=== PATIENT | female | born 2000 | race African-American/Black ===

== ENCOUNTER 2020-06-16 16:42 | Emergency (ER) | payer MEDICAID ==
[~2020-06-16] VITALS: Ht 162.6 cm; Wt 56.7 kg
--- NOTE | 2020-06-16 16:56 | NUR ---
ED Nurse Note: Pt walked into ED for nausea and vomiting for more than 2 weeks. Pt states her last menstrual period was 05/10. Pt thinks could possibly be . Pt is alert and orientedx4, ambulatory. She has been seen by [facility].
[2020-06-16 16:57] VITALS: BP 116/76
[2020-06-16] MEDS ORDERED: Metoclopramide 10mg/2ml Inj IVP ONE (17:00)
[2020-06-16 17:38] LABS: APPEARANCE,URINE SLIGHTLY CLOUDY; BILIRUBIN, URINE NEGATIVE (NEGATIVE); GLUCOSE, URINE (UA) NEGATIVE (NEGATIVE); KETONES,URINE 4+ (NEGATIVE); LEUKOCYTE ESTERASE ,URINE NEGATIVE (NEGATIVE); NITRITE,URINE NEGATIVE (NEGATIVE); PH,URINE 5 (4.5-8.0); PROTEIN,URINE 2+ (NEGATIVE); UROBILINOGEN,URINE NORMAL MG/DL (0.0-1.0)
[2020-06-16 17:41] LABS: EOSINOPHILS % (AUTO) 0.1 % (0.0-3.0); HEMATOCRIT 43.7 % (37.0-47.0); HEMOGLOBIN 14.9 G/DL (12.0-16.0); LYMPHOCYTES % (AUTO) 17.7 % (20.0-45.0); MEAN CORPUSCULAR VOLUME 89 FL (80-99); MONOCYTES % (AUTO) 6.9 % (1.0-10.0); NEUTROPHILS % (AUTO) 74.3 % (45.0-75.0); PLATELET COUNT 274 K/UL (150-450); RED BLOOD COUNT 4.89 M/UL (4.20-5.40); RED CELL DISTRIBUTION WIDTH 11.2 % (11.6-14.8); WHITE BLOOD COUNT 11.3 K/UL (4.8-10.8)
[2020-06-16 17:54] LABS: ANION GAP 17 mmol/L (5-15); BLOOD UREA NITROGEN 8 mg/dL (7-18); CALCIUM 10.1 MG/DL (8.5-10.1); CARBON DIOXIDE 18 MMOL/L (21-32); CHLORIDE 101 MMOL/L (98-107); CREATININE 0.9 MG/DL (0.55-1.30); POTASSIUM 3.4 MMOL/L (3.5-5.1); SODIUM 136 MMOL/L (136-145)
[2020-06-16 18:00] LABS: COLOR,URINE YELLOW
[2020-06-16 18:05] LABS: ALANINE AMINOTRANSFERASE 14 U/L (12-78); ALBUMIN 4.8 G/DL (3.4-5.0); ALBUMIN/GLOBULIN RATIO 1.2 (1.0-2.7); ALKALINE PHOSPHATASE 40 U/L (46-116); ASPARTATE AMINO TRANSFERASE 16 U/L (15-37); BILIRUBIN,DIRECT 0.2 MG/DL (0.0-0.3); BILIRUBIN,TOTAL 1.2 MG/DL (0.2-1.0)
--- NOTE | 2020-06-16 18:22 | Emergency Room Report ---
History of Present Illness General Chief Complaint: Vomiting Source: Patient Present Illness HPI 19-year-old female presents today with a chief complaint of vomiting x2 weeks. Patient states that she took an at-home test and it was positive. Last menstrual period was April 29, 2020. Other associated symptoms are lower pelvic cramping, it is intermittent, and she states she currently does not have any lower pelvic pain right now. She denies any vaginal bleeding or discharge. [place] any urinary symptoms. Location: Lower pelvic pain. Severity: Mild Quality: Throbbing Timing: Intermittent currently not at this time Modifying Factors: None Associated signs and symptoms: Vomiting PMH: [Denies] PSH: [Denies] Smoking: [Denies] Ethanol: [Denies] Drug: Reports marijuana Allergies: Coded Allergies: No Known Allergies (Unverified , 06/16/20) COVID-19 Screening Contact w/high risk pt: No Experienced COVID-19 symptoms?: No COVID-19 Testing performed MANAGER IN TRAINING: No Patient History Last Menstrual Period: 04/29/2020 Now: No Nursing Documentation-PMH Past Medical History: No Stated History Review of Systems Narrative Review of systems: CONST: No fevers or chills, No night sweats EYES: No eye pain, vision change, eye discharge HEAD/EARS/NOSE/THROAT: No earache, sore throat, or nasal discharge. PULMONARY: No SOB, no cough, no wheezing CARDIAC: No chest pain, No palpitations, no leg swelling GI: No abdominal pain, + vomiting, no diarrhea , no melena or BRBPR : No flank pain, no dysuria, no hematuria, no frequency. MUSCULOSKELETAL: No back pain, no neck pain, no leg pain SKIN: No rash, no itching, no bruising NEUROLOGICAL: No headache, no dizziness, no paresthesia , no focal weakness. 14 point Review of Systems is otherwise negative except per HPI Physical Exam Vital Signs Date Time Temp Pulse Resp B/P (MAP) Pulse Ox O2 Delivery O2 Flow Rate FiO2 06/16/20 16:46 98.1 110 22 110/74 (86) 100 Room Air 06/16/20 16:57 98 Other Organ Systems Physical Exam: GENERAL: BMI 21.5 Awake, alert, nontoxic, in no acute distress EYES: EOMI, conjunctiva without pallor HEAD/EARS/NOSE/THROAT: NCAT, oral mucosa moist, external nose and ear normal in appearance, oropharynx clear, no swelling or exudates. NECK: supple, nontender, no spasm, no JVD, no cervical adenopathy RESPIRATORY: no stridor, effort normal, no retractions, no accessory muscle use, BS clear bilaterally, no wheezes, no rhonchi, no rales, no rub. CARDIOVASCULAR: RRR, normal S1 S2, no murmur, no peripheral edema ABDOMINAL /GI: soft, nondistended, nontender, BS normal, no masses, no guarding, no Mcburneys point tenderness, no rebound, no Murpheys sign : No CVA tenderness MUSCULOSKELETAL: All extremities are non-tender, no swelling, FROM, normal strength, normal sensation, cap refill <2 seconds in all extremities EXTREMITIES: no leg swelling, pulses: 2+ brisk and normal in all distal extremities SKIN: No rash, skin is warm and dry. No cyanosis, no pallor NEUROLOGICAL: awake, alert and appropriate, oriented x3, speech normal, motor and sensation grossly intact PSYCHIATRIC: Normal mood, normal affect Medical Decision Making PA Attestation Dr. Garcia Is my supervising Physician whom patient management has been discussed with. Diagnostic Impression: Primary Impression: Hyperemesis gravidarum Additional Impressions: Acute nausea with nonbilious vomiting Qualified Codes: Z3A.01 - Less than 8 weeks gestation of ER Course Pt. presents to the ED c/o vomiting for 2 weeks. Ddx considered but are not limited to , hyperemesis gravidarum, DKA, gastroenteritis, appendicitis Vital signs: Have stabilized and are WNL, pt. is afebrile H&PE are most consistent with hyperemesis gravidarum ORDERS: CBC, CMP, urinalysis, beta hCG quantitative, OB ultrasound ED INTERVENTIONS: IV fluids, Reglan, Keflex, and potassium DISCHARGE: Patient presents today with vomiting for 2 weeks. She states she has had a positive test at home and believes she may be , therefore work-up was ordered. CBC revealed mildly elevated leukocytosis at 11.3 however I suspect that is reactive due to the vomiting. CMP revealed no severely acute electrolyte abnormalities however potassium is at 3.4 and therefore patient was given 40 mEq of oral potassium while here in ER. She is noted to have a bicarb of 18 with ketonuria and therefore clinically she is acidotic however no evidence of severe acidosis at ths time, she appears well and in no acute distress, vital signs have normalized. She was given IV fluids as well as reglan while here in ER and states she is feeling much better. She is now able tolerate p.o. On abdominal exam there is no tenderness to palpation, do not suspect appendicitis at this time. OB ultrasound revealed evidence of intrauterine with blood flow to both ovaries, do not suspect ovarian torsion or ectopic at this time. urinalysis did reveal evidence of 3+ blood and red blood cells with bacteria, therefore we will treat patient for asymptomatic urinary tract infection. She was given 1 dose of Keflex while here in ER and sent home with a prescription. Patient was also sent home with a prescription for Diclegis for the vomiting. She is currently able to tolerate p.o. and in no acute distress. She was given resources to follow-up with OB. At this time pt. is stable for d/c to home. Will provide printed patient care instructions, and any necessary prescriptions. Care plan and follow up instructions have been discussed with the patient prior to discharge. Laboratory Tests Test 06/16/20 14:54 06/16/20 17:24 Urine Color Yellow Urine Appearance Slightly cloudy Urine pH 5 (4.5-8.0) Urine Specific Gurley 1.030 (1.005-1.035) Urine Protein 2+ (NEGATIVE) H Urine Glucose (UA) Negative (NEGATIVE) Urine Ketones 4+ (NEGATIVE) H Urine Blood 3+ (NEGATIVE) H Urine Nitrite Negative (NEGATIVE) Urine Bilirubin Negative (NEGATIVE) Urine Urobilinogen Normal MG/DL (0.0-1.0) Urine Leukocyte Esterase Negative (NEGATIVE) Urine RBC 15-20 /HPF (0 - 2) H Urine WBC 2-4 /HPF (0 - 2) Urine Squamous Epithelial Cells Many /LPF (NONE/OCC) H Urine Bacteria Few /HPF (NONE) White Blood Count 11.3 K/UL (4.8-10.8) H Red Blood Count 4.89 M/UL (4.20-5.40) Hemoglobin 14.9 G/DL (12.0-16.0) Hematocrit 43.7 % (37.0-47.0) Mean Corpuscular Volume 89 FL (80-99) Mean Corpuscular Hemoglobin 30.6 PG (27.0-31.0) Mean Corpuscular Hemoglobin Concent 34.2 G/DL (32.0-36.0) Red Cell Distribution Width 11.2 % (11.6-14.8) L Platelet Count 274 K/UL (150-450) Mean Platelet Volume 7.6 FL (6.5-10.1) Neutrophils (%) (Auto) 74.3 % (45.0-75.0) Lymphocytes (%) (Auto) 17.7 % (20.0-45.0) L Monocytes (%) (Auto) 6.9 % (1.0-10.0) Eosinophils (%) (Auto) 0.1 % (0.0-3.0) Basophils (%) (Auto) 1.0 % (0.0-2.0) Sodium Level 136 MMOL/L (136-145) Potassium Level 3.4 MMOL/L (3.5-5.1) L Chloride Level 101 MMOL/L (98-107) Carbon Dioxide Level 18 MMOL/L (21-32) L Anion Gap 17 mmol/L (5-15) H Blood Urea Nitrogen 8 mg/dL (7-18) Creatinine 0.9 MG/DL (0.55-1.30) Estimated Glomerular Filtration Rate > 60 mL/min (>60) Glucose Level 73 MG/DL (74-106) L Calcium Level 10.1 MG/DL (8.5-10.1) Total Bilirubin 1.2 MG/DL (0.2-1.0) H Direct Bilirubin 0.2 MG/DL (0.0-0.3) Aspartate Amino Transferase (AST) 16 U/L (15-37) Alanine Aminotransferase (ALT) 14 U/L (12-78) Alkaline Phosphatase 40 U/L (46-116) L Total Protein 8.9 G/DL (6.4-8.2) H Albumin 4.8 G/DL (3.4-5.0) Globulin 4.1 g/dL Albumin/Globulin Ratio 1.2 (1.0-2.7) Lipase 63 U/L (73-393) L Human Chorionic Gonadotropin, Quant 441320 mIU/mL (1-6) H CT/MRI/US Diagnostic Results CT/MRI/US Diagnostic Results : Imaging Test Ordered: OB ultrasound Impression "IMPRESSION: 1. Single viable intrauterine gestation corresponding to a gestational age of 7 weeks 4 days. 2. heart rate is 153 bpm. 3. Flow is demonstrated to both ovaries. 4. Probable left ovarian corpus luteum cyst. 5. Cervix measures 3 cm and is closed." ---Per official radiology report please see radiology report for specific details.--- Last Vital Signs Date Time Temp Pulse Resp B/P (MAP) Pulse Ox O2 Delivery O2 Flow Rate FiO2 06/16/20 16:57 99 20 Room Air 98 06/16/20 16:57 98.1 116/76 98 Status: improved Disposition: HOME, SELF-CARE Condition: Stable Scripts Cephalexin* (KEFLEX*) 500 Mg Capsule 500 MG ORAL EVERY 8 HOURS for 10 Days, #30 CAP Prov: Diane Green 06/16/20 Doxylamine/Pyridoxine Hcl (DICCHATO ARRIETA 10-10 MG TABLET) 1 Each Tablet. 1-2 TAB PO TID, #21 TAB Prov: Diane Green 06/16/20 Referrals: NOT CHOSEN IPA/,REFERRING (PCP) Patient Instructions: Hyperemesis Gravidarum Additional Instructions: Take medications as directed. Follow up with a Primary Care Provider in 1-2 days, even if your symptoms have resolved. Please see attached referrals to establish care with an OB. Stop smoking marijuana. Return sooner to ED if new symptoms occur, or current symptoms become worse. - Please note that this Emergency Department Report was dictated using [employer]credit review officer technology software, occasionally this can lead to erroneous entry secondary to interpretation by the dictation equipment. Denise Osorio PA-C Jun 16, 2020 18:22
--- NOTE | 2020-06-16 18:43 | Diagnostic Imaging Report ---
ADDENDUM - Added by Saravanan Zamora MD on 06/17/2020 7:31 PM (-08:00) This is a correction to the original report. This was only a transabdominal examination. EXAM: US First Trimester , Transabdominal and Transvaginal CLINICAL HISTORY: ABD PAIN TECHNIQUE: Real-time transabdominal and transvaginal obstetrical ultrasound of the maternal pelvis and a first trimester with image documentation. Transvaginal imaging was used for better evaluation of the fetus and adnexa. COMPARISON: No previous study. FINDINGS: Gestation: Single viable intrauterine gestation is noted. heart rate is 153 bpm. Yolk sac is unremarkable. Flow noted to both ovaries. Placenta/amniotic fluid: Cannot be adequately evaluated due to the early gestational age. Uterus/cervix: Cervix measures 3 cm and is closed. No myometrial mass. Ovaries: A 1.5 cm probable left ovarian corpus luteum cyst. Free fluid: No free fluid. IMPRESSION: 1. Single viable intrauterine gestation corresponding to a gestational age of 7 weeks 4 days. 2. heart rate is 153 bpm. 3. Flow is demonstrated to both ovaries. 4. Probable left ovarian corpus luteum cyst. 5. Cervix measures 3 cm and is closed.
[2020-06-16 18:54] VITALS: BP 126/74
--- NOTE | 2020-06-16 19:15 | NUR ---
ED Nurse Note: Recieved report from am nurse to resume care, pt in bed resting quietly, talking on cell phone, denies pain, no vomiting or diarrhea, provider in room speaking with pt givine results, will resume care and give PO challenge and prepare for disposition.
[2020-06-16] MEDS ORDERED: DICLEGIS DR 101 EACH PO (19:23)
[2020-06-16] MEDS ORDERED: CEPHALEXIN500 MG ORAL (19:23)
[2020-06-16] MEDS ORDERED: Cephalexin 500mg cap ORAL ONE (19:30)
[2020-06-16 19:35] VITALS: BP 126/74
== END 2020-06-16 19:35 | disposition home or self-care (01) ==
LOC: EMR 17:00
DX: O21.0 Mild hyperemesis gravidarum (principal); Z3A.01 Less than 8 weeks gestation of pregnancy; F12.90 Cannabis use, unspecified, uncomplicated
CPT/HCPCS: 36415; 76801; 80053; 81003; 82248; 83690; 84702; 85025; 96361; 96374; J2765; J7030; Z7502; 99284; J8499